=== PATIENT | male | born 1990 | race Caucasian/White ===

== ENCOUNTER 2017-05-09 11:15 | Emergency (ER) | payer MEDICAID ==
[~2017-05-09] VITALS: Ht 185.4 cm; Wt 108.9 kg
[~2017-05-09 11:15] MED LIST: NOHOMEMEDICATIONS; ULTRAM 50MG TAB50 MG PO
[2017-05-09 11:39] LABS: URINE BILIRUBIN NEGATIVE (Negative); URINE BLOOD 2+ (Negative); URINE CLARITY CLEAR; URINE COLOR YELLOW; URINE GLUCOSE-RANDOM NEGATIVE (Negative); URINE KETONES NEGATIVE (Negative); URINE LEUKOCYTES-REFLEX NEGATIVE (Negative); URINE NITRITE-REFLEX NEGATIVE (Negative); URINE PROTEIN TRACE (Negative); URINE SPECIFIC GRAVITY >= 1.030 (1.005-1.030); URINE UROBILINOGEN 0.2 E.U./dl (0.2-1.0)
[2017-05-09 11:45] LABS: CASTS None Seen /LPF (None Seen); MUCUS >6 Heavy strn/LPF (None Seen); SQUAMOUS 0-3 Few /LPF (0-3)
[2017-05-09 11:46] LABS: BACTERIA-REFLEX None Seen /HPF (None Seen); CRYSTALS None Seen /LPF (None Seen); URINE RBC 3-10 Few /HPF (0-2); URINE WBC-REFLEX 0-5 Rare /HPF (0-5)
[2017-05-09] MEDS ORDERED: PROZAC10 MG PO (11:46)
[2017-05-09 11:49] LABS: HEMATOCRIT 45.3 % (42.0-52.0); HEMOGLOBIN 15.2 gm/dL (14.0-18.0); MCH 32.1 pg (26.0-34.0); MCHC 33.5 g/dL (28.0-37.0); MPV 8.9 fl. (7.2-11.1); NUCLEATED RBCS 0 /100WBC; PLATELET COUNT* 182 thou/uL (150-400); RBC 4.72 mil/uL (4.50-6.00); RDW-CV 14.2 % (10.5-14.5); WBC 8.1 thou/uL (4.0-11.0)
[2017-05-09 12:01] LABS: CALCIUM 8.6 mg/dL (8.5-10.1); CREATININE 0.8 mg/dL (0.6-1.3); POTASSIUM 3.8 mmol/L (3.5-5.1)
[2017-05-09 12:05] LABS: ALBUMIN 3.7 g/dL (3.4-5.0); TOTAL BILIRUBIN 0.5 mg/dL (<0.1-1.0)
[2017-05-09 12:13] LABS: ABSOLUTE EOSINOPHILS 0.1 thou/uL (0.0-0.7); ABSOLUTE LYMPHOCYTES 1.1 thou/uL (0.8-5.3); ABSOLUTE MONOCYTES 0.6 thou/uL (0.0-1.2); ABSOLUTE NEUTROPHILS 6.3 thou/uL (1.6-8.1)
[2017-05-09 12:14] LABS: PLATELET ESTIMATE ADEQUATE
[2017-05-09] MEDS ORDERED: ONDANSETRON HCL4 M2 PO (12:48)
[2017-05-09] MEDS ORDERED: HYDROCODONE-AP1 EAC6 PO (12:48)
[2017-05-09] MEDS ORDERED: FLOMAX0.4 MG PO (12:48)
[2017-05-09 12:56] VITALS: BP 140/91
[2017-05-10] MEDS ORDERED: PHENAZOPYRIDIN200 M2 PO (17:33)
[2017-05-10] MEDS ORDERED: LEVSIN0.125 MG PO (17:33)
== END 2017-05-09 12:56 | disposition home or self-care (01) ==
LOC: M.ERS 11:15
PROVIDERS: Physician Assistant
DX: N20.0 Calculus of kidney (principal); F31.9 Bipolar disorder, unspecified; F90.9 Attention-deficit hyperactivity disorder, unspecified type; F17.210 Nicotine dependence, cigarettes, uncomplicated

== ENCOUNTER 2017-05-09 22:04 | Inpatient (IN) | payer MEDICAID ==
[~2017-05-09] VITALS: Ht 185.4 cm; Wt 101.6 kg
[~2017-05-09 22:04] MED LIST changes: +FLOMAX0.4 MG PO; +HYDROCODONE-AP1 EAC6 PO; +ONDANSETRON HCL4 M2 PO; +PROZAC10 MG PO
[2017-05-09 22:23] VITALS: BP 143/95
[2017-05-09 23:05] LABS: ABSOLUTE EOSINOPHILS 0.1 thou/uL (0.0-0.7); ABSOLUTE LYMPHOCYTES 1.3 thou/uL (0.8-5.3); ABSOLUTE MONOCYTES 0.7 thou/uL (0.0-1.2); ABSOLUTE NEUTROPHILS 2.3 thou/uL (1.6-8.1); BASOPHILS 0.4 %; EOSINOPHILS 2.5 %; HEMATOCRIT 42.9 % (42.0-52.0); HEMOGLOBIN 14.7 gm/dL (14.0-18.0); LYMPHOCYTES 29.9 %; MCH 32.8 pg (26.0-34.0); MCHC 34.2 g/dL (28.0-37.0); MCV 95.9 fL (80.0-100.0); MONOCYTES 15.6 %; MPV 8.7 fl. (7.2-11.1); NUCLEATED RBCS 0 /100WBC; PLATELET COUNT* 178 thou/uL (150-400); POLYS 51.6 %; RBC 4.47 mil/uL (4.50-6.00); WBC 4.5 thou/uL (4.0-11.0)
[2017-05-09 23:13] LABS: CREATININE 0.7 mg/dL (0.6-1.3); POTASSIUM 3.8 mmol/L (3.5-5.1)
[2017-05-09 23:23] LABS: ALBUMIN 3.6 g/dL (3.4-5.0); TOTAL BILIRUBIN 0.3 mg/dL (<0.1-1.0)
[2017-05-10 00:01] VITALS: BP 127/75
[2017-05-10 00:15] VITALS: BP 144/93
[2017-05-10 00:15] LABS: URINE BILIRUBIN NEGATIVE (Negative); URINE BLOOD NEGATIVE (Negative); URINE CLARITY CLEAR; URINE COLOR STRAW; URINE GLUCOSE-RANDOM NEGATIVE (Negative); URINE KETONES NEGATIVE (Negative); URINE LEUKOCYTES-REFLEX NEGATIVE (Negative); URINE NITRITE-REFLEX NEGATIVE (Negative); URINE PROTEIN NEGATIVE (Negative); URINE SPECIFIC GRAVITY <= 1.005 (1.005-1.030); URINE UROBILINOGEN 0.2 E.U./dl (0.2-1.0)
--- NOTE | 2017-05-10 05:32 | NUR ---
ASSESSMENT COMPLETE. PT ADMITTED WITH KIDNEY STONE AND RENAL COLIC FAILED OUTPT PAIN MANAGEMENT. PT WAS IN ED EARLIER AND REFUSED ADMISSION, CAME BACK TO ED TONIGHT FOR PAIN AND WAS ADMITTED. UROLOGY CONSULTED. PT HAS BEEN NPO SINCE MIDNIGHT. PT HAS IV FLUIDS INFUSING. PT IS ON ROOM AIR WITH [place] SATS. PT IS UP STANDBY ASSIST. IV MORPHINE GIVEN ONCE FOR PAIN SINCE ADMISSION TO FLOOR. SEE ASSESSMENT AND VITALS FOR OTHER DETAILS. CALL LIGHT WITHIN REACH, WILL CONTINUE PLAN OF CARE
[2017-05-10 08:00] VITALS: BP 136/63
--- NOTE | 2017-05-10 12:26 | NUR ---
PT OFF UNIT IN SURGERY
[2017-05-10 16:00] VITALS: BP 107/60
[2017-05-10] MEDS ORDERED: PHENAZOPYRIDIN200 M2 PO (17:33)
[2017-05-10] MEDS ORDERED: LEVSIN0.125 MG PO (17:33)
[2017-05-10 17:34] VITALS: BP 107/60
--- NOTE | 2017-05-10 17:45 | NUR ---
PT TO DISCHARGE WITH GRANDMOTHER PAPERWORK AND SCRIPTS GIVEN IV DC'D ONLY PAIN IS WHEN HE VOIDS HAS [place] AT HOME FROM ER VISIT 2 NIGHTS AGO PER PT NO QUESTIONS OR CONCERNS AT THIS TIME FOLLOW UP WITH UROLOGY IN 1-2 WEEKS TO TAKE OUT STENT
--- NOTE | 2017-05-10 18:28 | NUR ---
TELEPHONE ORDER GIVEN FROM DR GILLIS THAT OKAY TO DISCHARGE PATIENT SINCE UROLOGY WAS OKAY WITH DISCHARGE
--- NOTE | 2017-05-12 16:31 | OP ---
[address] [address] OPERATIVE REPORT Name: LOU LIU Room: [address] M.R.#: [id number] Admission: 05/09/17 Attend Phys: Chandan Veliz MD Discharge: 05/10/17 Date of : 89 Report #: [id number] THIS REPORT FOR: //name// CC: [facility] physician/PCP Chandan Veliz DATE OF SERVICE: 05/10/2017 PREOPERATIVE DIAGNOSIS: Right ureteral stone. POSTOPERATIVE DIAGNOSIS: Right ureteral stone. PROCEDURE PERFORMED: Cystoscopy, right retrograde pyelogram, ureteroscopy, laser lithotripsy and stent placement. SURGEON: Chandan Batista MD ANESTHESIA: General. ESTIMATED BLOOD LOSS: Minimal. COMPLICATIONS: None. INDICATION FOR PROCEDURE: This is a 26-year-old gentleman who presented acutely x 2 for severe right flank pain and obstructing ureteral stone measuring about 8 mm. His options for management have been discussed in detail. He would like to proceed with right ureteroscopy, laser lithotripsy and stent placement. Risks, benefits, possible complications were explained in detail to both he and his grandmother. They voiced clear understanding and would like proceed. DESCRIPTION OF PROCEDURE: After obtaining informed consent, the patient was taken to the operating room and placed in supine position. After adequate general anesthesia and IV antibiotics, he was prepped and draped in the dorsal lithotomy position. A 21-Mauritanian cystoscope was then introduced into the anterior urethra with normal caliber all the way down the bladder. Bladder was systematically inspected. There were no stones, tumors or diverticula. Under fluoroscopic imaging, there was a large calcific density overlying the right distal ureter measuring about 8-9 mm. A retrograde pyelogram was performed on the right side using a 5-Mauritanian open-ended ureteral catheter. Normal caliber ureter up to the calcification which then became a filling defect. There was some mild to moderate hydronephrosis proximally all the way up to the renal pelvis. A guidewire was then passed in retrograde fashion into the kidney under fluoroscopic guidance. It passed quite easily. Rigid ureteroscopy was then carried out alongside the wire into the distal ureter where the stone was immediately encountered. Using a 365 micron holmium laser fiber at a setting of 0.8 x 8 hz. The stone was fragmented [place] [address] OPERATIVE REPORT Name: LOU LIU Room: [address]#: [id number] Admission: 05/09/17 Attend Phys: Chandan Veliz MD Discharge: 05/10/17 Date of : 89 Report #: [id number] fragments were basket retrieved atraumatically. These were passed off the table and sent to the lab for stone analysis. The ureter was inspected all the way up to the proximal ureter where there is no evidence of any injury. No other stones were identified. Scope was removed and the cystoscope was replaced in the bladder. A 4.8 x 28 cm double-J stent was passed in retrograde fashion over the wire. A good coil was noted overlying the kidney and a good coil was directly visualized in the bladder. Bladder was drained. Uro-Jet was applied per urethra. A B&O suppository was placed per rectum. The patient was extubated and taken to recovery room in good condition. The plan is to follow up in 1-2 weeks for stent removal. <ELECTRONICALLY SIGNED> By: Chandan Batista MD 05/12/17 1631 [id number] Batista MD /nt
== END 2017-05-10 18:05 | disposition home or self-care (01) | DRG 670 ==
LOC: M.ERS 22:04 → M.TBA-ER 22:52 → M.3W 05-10 00:06
PROVIDERS: Personal Emergency Response Attendant; ADMIT Internal Medicine
PROC: 0TC68ZZ Extirpation of Matter from Right Ureter, Via Natural or Artificial Opening Endoscopic (ICD-10-PCS; principal; 2017-05-10)
PROC: 0T768DZ Dilation of Right Ureter with Intraluminal Device, Via Natural or Artificial Opening Endoscopic (ICD-10-PCS; principal; 2017-05-10)
PROC: BT1D1ZZ Fluoroscopy of Right Kidney, Ureter and Bladder using Low Osmolar Contrast (ICD-10-PCS; principal; 2017-05-10)
DX: N20.2 Calculus of kidney with calculus of ureter (principal); F90.9 Attention-deficit hyperactivity disorder, unspecified type; F31.9 Bipolar disorder, unspecified; F17.210 Nicotine dependence, cigarettes, uncomplicated; F41.9 Anxiety disorder, unspecified; Z79.899 Other long term (current) drug therapy